=== PATIENT | male | born 1980 | race Caucasian/White ===

== ENCOUNTER 2020-06-13 02:08 | Outpatient (CLI) | payer OTHER, SELFPAY ==
--- NOTE | 2020-06-13 | DI.CT_ITS ---
EXAM: CT NECK W CLINICAL HISTORY: NECK PAIN,M54.2,PHARYNGOESOPHAGEAL DYSPHAGIA,R13.14. TECHNIQUE: Imaging Protocol: Axial computed tomography images with coronal and sagittal reformatted images were created and reviewed. CONTRAST MATERIAL: Intravenous: Omnipaque 350 Contrast volume:100 mL COMPARISON: No exams were available for comparison FINDINGS: Orbits and orbital soft tissues: Within normal limits. Visualized paranasal sinuses: Small mucous retention cysts or polyps are seen in the maxillary sinus es. Nasopharynx: Within normal limits. Oropharynx: Within normal limits. Hypopharynx: Prominence of the tonsillar tissue bilaterally. No discrete mass is appreciated. No f ocal fluid collection is seen to suggest an abscess. Larynx: Within normal limits. Retropharyngeal space: Within normal limits. Parotids/submandibular: Within normal limits. Thyroid gland: Within normal limits. Lymphadenopathy: There is scattered lymph nodes seen along the level one to level three all measurin g less than 8 mm in short axis diameter which are physiologic in nature. Trachea: Within normal limits. Lung apices: Within normal limits. Bones: Within normal limits. Carotids/Jugular: Within normal limits. Soft tissues: Within normal limits. IMPRESSION: Prominence of the tonsillar tissue bilaterally. An infectious or inflammatory process cannot be excl uded. No mass or abscess is identified. RADIATION DOSE DELIVERED: 489.1mGy.cm Total DLP 489.1mGy.cm Total DLP DATA REPOSITORY: All CT scans at this facility are submitted to the National Radiology Data Registry (NRDR) Dose Index Registry (DIR) with the [employer] ([employer]). RADIATION OPTIMIZATION: All CT scans at this facility use at least one of these dose optimization te chniques: automated exposure control; mA and/or kV adjustment per patient size (includes targeted exa ms where dose is matched to clinical indication); or iterative reconstruction.
[2020-06-13] MEDS: Omnipaque 350 MG/ML 100 ML BTL IJ (13:39)
== END 2020-06-13 02:28 ==
PROVIDERS: PCP Family Medicine; Visit Provider Otolaryngology Otolaryngology/Facial Plastic Surgery
DX: M54.2 Cervicalgia (principal); R13.14 Dysphagia, pharyngoesophageal phase
CPT/HCPCS: 70491; J3490

== ENCOUNTER 2021-09-11 17:44 | Outpatient (REF) | payer OTHER, SELFPAY ==
[2021-09-15 08:37] LABS: COVID-19 RT-PCR UVMMC Result Positive (Negative)
== END 2021-09-11 17:45 | disposition home or self-care (01) ==
LOC: NCHCN 17:44
PROVIDERS: PCP Family Medicine; Visit Provider Nurse Practitioner Family
DX: Z20.822 Contact with and (suspected) exposure to COVID-19 (principal)
CPT/HCPCS: U0003

== ENCOUNTER 2021-09-18 01:56 | Outpatient (CLI) | payer OTHER, SELFPAY ==
[2021-09-18 09:45] VITALS: BP 126/88; PULSE 94; RESP 18; TEMP 36.8; O2SAT 94
[2021-09-18 10:22] VITALS: BP 118/85; PULSE 107; RESP 18; TEMP 36.8
[2021-09-18 12:09] VITALS: PULSE 95; TEMP 35.4; O2SAT 93
== END 2021-09-18 01:57 | disposition home or self-care (01) ==
LOC: INF 01:56
PROVIDERS: PCP Family Medicine; Visit Provider Family Medicine
DX: U07.1 COVID-19 (principal)
CPT/HCPCS: 96365